=== PATIENT | female | born 1965 | race Two or more races ===

== ENCOUNTER 2023-12-29 23:40 | Emergency (ER) | payer SELFPAY ==
[2023-12-29 23:58] VITALS: BP 153/81; PULSE 84; RESP 18; TEMP 36.6; O2SAT 98
[2023-12-29 23:59] VITALS: PULSE 102; RESP 24; O2SAT 97
[2023-12-30 00:04] VITALS: BMI 32.1
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
[2023-12-30] MEDS: ONDANSETRON INJ 2 MG/ML INJ 2 ML 4 MG IV (00:57)
[2023-12-30] MEDS: MORPHINE SULF INJ 10 MG/ML VIAL 2 MG IV (00:57)
[2023-12-30] MEDS: SODIUM CHLORIDE 0.9% 1000 ML 1,000 ML 100 ML IV (00:58)
[2023-12-30 01:00] VITALS: BP 137/76; PULSE 71; RESP 19; O2SAT 96
[2023-12-30 01:03] VITALS: PULSE 79
[2023-12-30 01:09] LABS: Lactate (Lactic Acid) 2.3 mMol/L (0.4-2.0)
[2023-12-30 01:12] LABS: Basophils # (Auto) 0.1 Thou/mm3 (0.0-0.2); Basophils % (Auto) 1 % (0-2.5); Eosinophils # (Auto) 0.2 Thou/mm3 (0.0-0.5); Eosinophils % (Auto) 2 % (0-10); Hematocrit 40.5 % (36.0-46.0); Hemoglobin 14.3 g/dL (12.0-16.0); Immature Granulocytes % (Auto) 1 % (0-0); Immature Granulocytes Auto 0.05 Thou/mm3 (0.00-0.00); Lymphocytes # (Auto) 2.3 Thou/mm3 (1.0-4.8); Lymphocytes % (Auto) 22 % (10-50); Mean Corpuscular HGB Conc 35.3 g/dl (31.0-37.0); Mean Corpuscular Hemoglobin 32.1 pg (25.0-35.0); Mean Corpuscular Volume 91 fL (80-100); Monocytes # (Auto) 0.5 Thou/mm3 (0.0-0.8); Monocytes % (Auto) 5 % (0-12); Neutrophils # (Auto) 7.7 Thou/mm3 (1.8-7.7); Neutrophils % (Auto) 71 % (37-80); Nucleated Red Blood Cell % 0 /100 WBC (0); Platelet Count 196 Thou/mm3 (140-440); RDW Standard Deviation 39.5 fL (36.4-46.3); Red Blood Count 4.45 Miln/mm3 (4.00-5.20); White Blood Count 10.9 Thou/mm3 (3.6-11.0)
[2023-12-30 01:28] LABS: Partial Thromboplastin Time 25.7 Seconds (22.0-36.0); Prothrombin Time 10.9 Seconds (9.0-12.2)
[2023-12-30 01:34] LABS: Alanine Aminotransferase 23 U/L (10-49); Albumin, Serum 4.4 gm/dL (3.5-5.0); Albumin/Globulin Ratio 1.4 (1.2-2.2); Alkaline Phosphatase 76 U/L (46-116); Amylase 140 U/L (30-118); Anion Gap 7 (7-16); Aspartate Amino Transferase 27 U/L (0-34); BUN/Creatinine Ratio 17 Ratio (12-20); Bilirubin,Total 0.5 mg/dL (0.3-1.2); Blood Urea Nitrogen 17 mg/dL (9-23); Calcium 9.1 mg/dL (8.3-10.6); Calcium (Corrected) 9.1 mg/dL (8.5-10.1); Carbon Dioxide 26.5 mMol/L (20.0-31.0); Chloride 103 mMol/L (98-107); Estimated Creatinine Clearance 61.5 mL/min (>60); Globulin 3.1 gm/dL (2.3-3.5); Glucose 170 mg/dL (74-106); Osmolality,Calculated 277 (275-295); Potassium 3.8 mMol/L (3.4-5.1); Sodium 136 mMol/L (136-145); Total Protein 7.5 gm/dL (5.7-8.2); eGFR > 60 See Note
[2023-12-30 01:36] VITALS: PULSE 80; RESP 16; O2SAT 97
[2023-12-30 01:45] VITALS: BP 153/91; PULSE 88; RESP 15; O2SAT 98
[2023-12-30 02:19] LABS: Collection Type, Urine Catheter; Squamous Epithelial Cell,Urine 0 /hpf (0-5)
[2023-12-30 02:28] LABS: Bilirubin,Urine Negative (Negative); Blood,Urine Negative (Negative); Clarity,Urine Clear (Clear/Hazy); Color,Urine Colorless (Lt Yel-Yel); Glucose, Urine Negative (Negative); Ketones,Urine Negative (Negative); Leukocyte Esterase,Urine Negative (Negative); Nitrite,Urine Negative (Negative); PH,Urine 7.5 (5.0-7.0); Protein,Urine Negative (Neg - Trace); RBC,Urine 3 /hpf (0-3); Specific Gravity,Urine 1.016 (1.001-1.035); Urobilinogen,Urine Negative mg/dL (0.0-1.0); WBC,Urine < 1 /hpf (0-5)
[2023-12-30 02:30] LABS: HCG Qualitative,Urine Negative
[2023-12-30 02:40] LABS: Amphetamine/Methamp Scrn,U Negative (Negative); Barbiturate Screen,Urine Negative (Negative); Benzodiazepines Screen,Urine Negative (Negative); Benzoylecgonine Screen, Ur Negative (Negative); Fentanyl Screen,Urine Negative (Negative); Opiate Screen,Urine Positive (Negative); THC Screen,Urine Negative (Negative)
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
--- NOTE | 2023-12-30 02:54 | PRELIM_ITS ---
CT scan of the chest, abdomen and pelvis without intravenous contrast (axial sections with sagittal a nd coronal reformats). December 30, 2023 at 0117 hoursClinical History: TraumaComparison: No prior st udy is available for comparison. .Findings:Bilateral lower lobes atelectasis. There is no pleural eff usion or pneumothorax. The aorta is within normal limits for age on this noncontrast study. There is no mediastinal collection. There is no pericardial effusion.The liver, gallbladder, spleen, pancreas, adrenals and kidneys are unremarkable on this noncontrast study.The bowel is unremarkable.The append ix is within normal limits.The urinary bladder is unremarkable. There is no free fluid or free air.No fracture is identified.The uterus and ovaries are within normal limits.Right proximal lower extremit y lipoma.Impression:No visceral or bony injury to the chest, abdomen or pelvis. Report Electronically Signed By: Jigar Ramos 12/30/2023 2:53:13 AM [EST]
[2023-12-30] MEDS: TETANUS,DIPHTHERIA TOXOIDS/PF (ADULT) 0.5 ML SYRINGE IMi (03:21)
[2023-12-30 04:08] LABS: Reflex Lactate? Y
[2023-12-30] MEDS: HYDROcodone/APAP 10/325 TAB PO (04:58)
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
== END 2023-12-30 05:01 | disposition home or self-care (01) ==
PROVIDERS: Student in an Organized Health Care Education/Training Program; Emergency Provider Emergency Medicine
DX: S22.42XA Multiple fractures of ribs, left side, initial encounter for closed fracture (principal); S19.9XXA Unspecified injury of neck, initial encounter; S39.91XA Unspecified injury of abdomen, initial encounter; S89.92XA Unspecified injury of left lower leg, initial encounter; S99.922A Unspecified injury of left foot, initial encounter; W22.12XA Striking against or struck by front passenger side automobile airbag, initial encounter; I49.8 Other specified cardiac arrhythmias; Z23 Encounter for immunization
CPT/HCPCS: 36415; 71045; 71250; 72125; 73560; 73630; 74176; 80053; 80307; 81001; 81025; 82150; 83605; 85025; 85610; 85730; 86900; 86901; 90471; 90714; 93005; 96374; 99284; J2270; J2405; J7030; A9270